=== PATIENT | male | born 1990 | race African-American/Black ===

== ENCOUNTER 2016-08-10 11:47 | Emergency (ER) | payer SELFPAY ==
[~2016-08-10] VITALS: Ht 182.9 cm; Wt 65.0 kg
[~2016-08-10 11:47] MED LIST: Z.0.NO CURRENT MEDS
[2016-08-10 11:55] VITALS: BP 139/84; PULSE 87; RESP 15; TEMP 98.2; O2SAT 99
[2016-08-10] MEDS ORDERED: ROBA500T PO (12:23)
[2016-08-10] MEDS ORDERED: IBUP800T23 PO (12:23)
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
== END 2016-08-10 13:30 | disposition home or self-care (01) ==
LOC: NEPB 11:47
DX: S46.912A Strain of unspecified muscle, fascia and tendon at shoulder and upper arm level, left arm, initial encounter (principal); S00.03XA Contusion of scalp, initial encounter; S93.402A Sprain of unspecified ligament of left ankle, initial encounter; V89.2XXA Person injured in unspecified motor-vehicle accident, traffic, initial encounter
CPT/HCPCS: 73610; 99283